=== PATIENT | male | born 1935 | race Caucasian/White ===

== ENCOUNTER 2018-11-19 13:01 | Inpatient (IN) | payer OTHER, MEDICAID ==
[2018-11-19 14:51] LABS: ADD MAN DIFF? NO
[2018-11-19 14:57] LABS: WHITE BLOOD COUNT 7.3 10^3/ul (4.8-10.8)
[2018-11-19 14:57] LABS: BASOPHILS % 0.5 % (0.0-2.0); EOSINOPHILS # 0.2 10^3/ul (0.0-0.5); EOSINOPHILS % 3.1 % (0.0-7.0); HEMATOCRIT 37.8 % (42.0-52.0); HEMOGLOBIN 12.4 g/dl (14.0-18.0); LYMPHOCYTES # 1.2 10^3/ul (0.8-2.9); LYMPHOCYTES % 15.7 % (15.0-51.0); MEAN CORPUSCULAR HEMOGLOBIN 29.2 pg (29.0-33.0); MEAN CORPUSCULAR HGB CONC 32.8 g/dl (32.0-37.0); MEAN CORPUSCULAR VOLUME 88.9 fl (82.0-101.0); MEAN PLATELET VOLUME 9.2 fl (7.4-10.4); MONOCYTE # 0.5 10^3/ul (0.3-0.9); MONOCYTES % 6.7 % (0.0-11.0); NEUTROPHIL # 5.4 10^3/ul (1.6-7.5); NEUTROPHILS % 73.7 % (39.0-77.0); PLATELET COUNT 228 10^3/UL (140-415); RED BLOOD COUNT 4.25 10^6/ul (4.70-6.10); RED CELL DISTRIBUTION WIDTH 13.5 % (11.5-14.5)
[2018-11-19] MEDS ORDERED: ONDANSETRON 4 MG INJ IV ×2 (15:00→16:00)
[2018-11-19] MEDS ORDERED: ACETAMINOPHEN 325 MG TAB PO (15:00)
[2018-11-19 15:17] LABS: PROTIME 13.3 Sec (11.9-14.9)
[2018-11-19 15:18] LABS: PARTIAL THROMBOPLASTIN TIME 28.1 Sec (23.0-35.0)
[2018-11-19 15:19] LABS: ALANINE AMINOTRANSFERASE 26 IU/L (13-69); ALBUMIN 4.2 g/dl (3.3-4.9); ALBUMIN/GLOBULIN RATIO 1.27; ALKALINE PHOSPHATASE 109 IU/L (42-121); ANION GAP 9 (5-13); ASPARTATE AMINO TRANSFERASE 22 IU/L (15-46); BILIRUBIN,INDIRECT 0.4 mg/dl (0-1.1); BILIRUBIN,TOTAL 0.4 mg/dl (0.2-1.3); BLOOD UREA NITROGEN 19 mg/dl (7-20); CALCIUM 9.1 mg/dl (8.4-10.2); CARBON DIOXIDE 28 mmol/L (21-31); CHLORIDE 103 mmol/L (97-110); CREATININE 0.93 mg/dl (0.61-1.24); GLUCOSE 96 mg/dl (70-220); POTASSIUM 4.3 mmol/L (3.5-5.1); SODIUM 140 mmol/L (135-144); TOTAL PROTEIN 7.5 g/dl (6.1-8.1)
[2018-11-19 15:20] LABS: LIPASE 159 U/L (23-300)
[2018-11-19 15:25] LABS: UR CLARITY SLIGHTLY CLOUDY (CLEAR); UR COLOR RED (YELLOW); URINE SPECIFIC GRAVITY (Dip) 1.005 (1.003-1.030)
[2018-11-19 15:26] LABS: UR TOTAL PROTEIN (Dip) 3+ mg/dl (NEGATIVE)
[2018-11-19 15:27] LABS: UR BILIRUBIN (Dip) NEGATIVE (NEGATIVE); UR BLOOD (Dip) 3+ mg/dL (NEGATIVE); UR GLUCOSE (Dip) NEGATIVE (NEGATIVE); UR KETONES (Dip) NEGATIVE (NEGATIVE); UR NITRITE (Dip) NEGATIVE (NEGATIVE)
[2018-11-19 15:28] LABS: ADD UMIC YES; UR ASCORBIC ACID NEGATIVE (NEGATIVE); UR LEUKOCYTE ESTERASE (Dip) 1+ Leu/ul (NEGATIVE); UR UROBILINOGEN (Dip) 1+ mg/dL (NEGATIVE)
[2018-11-19 15:35] LABS: UR RBC 70 /HPF (0-5); UR SQUAMOUS EPITHELIAL CELL FEW /HPF (FEW); UR WBC > 182 /HPF (0-5)
[2018-11-19] MEDS ORDERED: NACL 0.9% 3 ML SYG IV (16:00)
[2018-11-19 16:24] LABS: HEMOGLOBIN A1C 5.7 % (0-5.9)
[2018-11-19 16:35] LABS: B-TYPE NATRIURETIC PEPTIDE 1510 PG/ML (0-450)
[2018-11-19] MEDS: CEFTRIAXONE 1 GM/50 ML (PMX) 50 ML IVPB (17:39)
[2018-11-19] MEDS ORDERED: BICALUTAMIDE 50 MG TAB PO (19:00)
[2018-11-19 19:35] LABS: PROSTATE SPECIFIC ANTIGEN 49.1 ng/ml (0.0-4.0)
[2018-11-19] MEDS: BICALUTAMIDE 50 MG TAB PO (21:00)
[2018-11-19] MEDS: ATORVASTATIN 40 MG TAB PO (22:29)
[2018-11-19] MEDS: TAMSULOSIN (SR) 0.4 MG CAP PO (22:29)
[2018-11-19] MEDS: TICAGRELOR 90 MG TABLET PO (22:33)
[2018-11-19] MEDS: FINASTERIDE 5 MG TAB PO (22:41)
[2018-11-20 06:15] LABS: ADD MAN DIFF? NO
[2018-11-20 06:23] LABS: BASOPHILS % 0.4 % (0.0-2.0); EOSINOPHILS # 0.3 10^3/ul (0.0-0.5); EOSINOPHILS % 5.1 % (0.0-7.0); HEMATOCRIT 33.1 % (42.0-52.0); LYMPHOCYTES # 1.4 10^3/ul (0.8-2.9); LYMPHOCYTES % 25.3 % (15.0-51.0); MEAN CORPUSCULAR HEMOGLOBIN 29.7 pg (29.0-33.0); MEAN CORPUSCULAR HGB CONC 33.2 g/dl (32.0-37.0); MEAN CORPUSCULAR VOLUME 89.5 fl (82.0-101.0); MEAN PLATELET VOLUME 9.7 fl (7.4-10.4); MONOCYTE # 0.4 10^3/ul (0.3-0.9); MONOCYTES % 7.5 % (0.0-11.0); NEUTROPHIL # 3.3 10^3/ul (1.6-7.5); NEUTROPHILS % 61.5 % (39.0-77.0); PLATELET COUNT 214 10^3/UL (140-415); RED CELL DISTRIBUTION WIDTH 13.4 % (11.5-14.5)
[2018-11-20 06:23] LABS: WHITE BLOOD COUNT 5.3 10^3/ul (4.8-10.8)
[2018-11-20 06:53] LABS: PHOSPHORUS 4.2 mg/dl (2.5-4.9)
[2018-11-20 06:53] LABS: CHOL/HDL RATIO 2.5 RATIO; CHOLESTEROL 88 mg/dl (100-200); HDL CHOLESTEROL 35 mg/dl (31-75); LDL CHOLESTEROL,CALCULATED 42 mg/dl; MAGNESIUM 2.3 mg/dl (1.7-2.5); TRIGLYCERIDES 56 mg/dl (0-149)
[2018-11-20 07:03] LABS: ALANINE AMINOTRANSFERASE 22 IU/L (13-69); ALBUMIN 3.4 g/dl (3.3-4.9); ALKALINE PHOSPHATASE 74 IU/L (42-121); ANION GAP 4 (5-13); ASPARTATE AMINO TRANSFERASE 20 IU/L (15-46); BILIRUBIN,INDIRECT 0.5 mg/dl (0-1.1); BILIRUBIN,TOTAL 0.5 mg/dl (0.2-1.3); BLOOD UREA NITROGEN 19 mg/dl (7-20); CALCIUM 8.6 mg/dl (8.4-10.2); CARBON DIOXIDE 29 mmol/L (21-31); CHLORIDE 107 mmol/L (97-110); CREATININE 1.03 mg/dl (0.61-1.24); GLUCOSE 99 mg/dl (70-220); POTASSIUM 4.4 mmol/L (3.5-5.1); SODIUM 140 mmol/L (135-144)
[2018-11-20] MEDS: FINASTERIDE 5 MG TAB PO ×2 (08:33→21:43)
[2018-11-20] MEDS: ASPIRIN (EC) 81 MG TAB PO (08:33)
[2018-11-20] MEDS: METOPROLOL (XL) 25 MG TAB PO (08:34)
[2018-11-20] MEDS: TICAGRELOR 90 MG TABLET PO ×2 (08:36→21:46)
[2018-11-20] MEDS: BICALUTAMIDE 50 MG TAB PO ×2 (08:37→15:49)
[2018-11-20] MEDS ORDERED: ACETAMINOPHEN 650MG/20.3ML CUP (20:56)
[2018-11-20] MEDS: ATORVASTATIN 40 MG TAB PO (21:43)
[2018-11-20] MEDS: TAMSULOSIN (SR) 0.4 MG CAP PO (21:44)
[2018-11-21 06:00] LABS: ADD MAN DIFF? NO
[2018-11-21 06:05] LABS: BASOPHILS % 0.6 % (0.0-2.0); EOSINOPHILS # 0.3 10^3/ul (0.0-0.5); EOSINOPHILS % 5.7 % (0.0-7.0); HEMOGLOBIN 10.8 g/dl (14.0-18.0); LYMPHOCYTES # 1.4 10^3/ul (0.8-2.9); LYMPHOCYTES % 29.2 % (15.0-51.0); MEAN CORPUSCULAR HEMOGLOBIN 29.2 pg (29.0-33.0); MEAN CORPUSCULAR HGB CONC 32.7 g/dl (32.0-37.0); MEAN CORPUSCULAR VOLUME 89.2 fl (82.0-101.0); MEAN PLATELET VOLUME 9.5 fl (7.4-10.4); MONOCYTE # 0.4 10^3/ul (0.3-0.9); MONOCYTES % 8.2 % (0.0-11.0); NEUTROPHIL # 2.7 10^3/ul (1.6-7.5); NEUTROPHILS % 55.9 % (39.0-77.0); PLATELET COUNT 211 10^3/UL (140-415); RED CELL DISTRIBUTION WIDTH 13.4 % (11.5-14.5)
[2018-11-21 06:05] LABS: WHITE BLOOD COUNT 4.9 10^3/ul (4.8-10.8)
[2018-11-21 06:44] LABS: ANION GAP 4 (5-13); BLOOD UREA NITROGEN 20 mg/dl (7-20); CALCIUM 8.5 mg/dl (8.4-10.2); CARBON DIOXIDE 28 mmol/L (21-31); CHLORIDE 107 mmol/L (97-110); CREATININE 0.98 mg/dl (0.61-1.24); GLUCOSE 102 mg/dl (70-220); POTASSIUM 4.1 mmol/L (3.5-5.1); SODIUM 139 mmol/L (135-144)
[2018-11-21 07:02] LABS: MAGNESIUM 2.3 mg/dl (1.7-2.5)
[2018-11-21 07:03] LABS: PHOSPHORUS 4.1 mg/dl (2.5-4.9)
[2018-11-21] MEDS: ASPIRIN (EC) 81 MG TAB PO (08:18)
[2018-11-21] MEDS: METOPROLOL (XL) 25 MG TAB PO (08:19)
[2018-11-21] MEDS: TICAGRELOR 90 MG TABLET PO (08:27)
[2018-11-21] MEDS: BICALUTAMIDE 50 MG TAB PO (08:27)
== END 2018-11-21 18:13 | disposition home or self-care (01) | DRG 722 ==
LOC: E/R 13:01 → 6WM 14:55
DX: C61 Malignant neoplasm of prostate (principal); I21.9 Acute myocardial infarction, unspecified; R31.0 Gross hematuria; I25.10 Atherosclerotic heart disease of native coronary artery without angina pectoris; I10 Essential (primary) hypertension; D64.9 Anemia, unspecified; E78.5 Hyperlipidemia, unspecified; Z95.5 Presence of coronary angioplasty implant and graft; Z79.02 Long term (current) use of antithrombotics/antiplatelets; Z79.82 Long term (current) use of aspirin
CPT/HCPCS: 36415; 74176; 80048; 80053; 80061; 81001; 83036; 83690; 83735; 83880; 84100; 84153; 84154; 85025; 85610; 85730; 87086; 93306; 99285-25

== ENCOUNTER 2019-03-30 20:33 | Emergency (ER) | payer OTHER | END 2019-03-30 21:35 | disposition home or self-care (01) | LOC: E/R 20:33 | DX: R00.1 Bradycardia, unspecified (principal); I10 Essential (primary) hypertension; Z79.82 Long term (current) use of aspirin | CPT/HCPCS: 93005; 99283-25 ==